=== PATIENT | female | born 1985 | race Caucasian/White ===

== ENCOUNTER 2024-08-02 09:19 | Emergency (ER) | payer MEDICAID ==
[~2024-08-02] VITALS: Ht 167.6 cm; Wt 63.6 kg
[2024-08-02 09:23] VITALS: O2SAT 99
[2024-08-02 09:45] VITALS: BP 109/60; PULSE 92; RESP 14; TEMP 36.8; O2SAT 100
[2024-08-02 10:44] LABS: CLARITY URINE CLOUDY (CLEAR); COLOR URINE ORANGE (YELLOW); GLUCOSE URINE NEGATIVE (NEGATIVE); KETONES URINE 1+ (NEGATIVE); LEUKOCYTE ESTERASE URINE 1+ (NEGATIVE); NITRITE URINE NEGATIVE (NEGATIVE); OCCULT BLOOD URINE 3+ (NEGATIVE); PH URINE 5.5 (4.5-8.0); PROTEIN URINE 1+ (NEGATIVE); SPECIFIC GRAVITY URINE 1.028 (1.005-1.030)
[2024-08-02 10:52] LABS: BASOPHILS % 0.4 % (0.0-2.0); DIFFERENTIAL COMMENT 0; EOSINOPHILS % 0.5 % (0.0-5.0); HEMATOCRIT. 30.4 % (36.0-48.0); HEMOGLOBIN. 9.3 g/dL (12.0-16.0); LYMPHOCYTES % 14.6 % (20.0-50.0); MEAN CORPUSCULAR HEMOGLOBIN 22.5 pg (28.0-32.0); MEAN CORPUSCULAR HGB CONC 30.6 g/dL (31.0-37.0); MEAN CORPUSCULAR VOLUME 73.4 fL (81.0-99.0); MEAN PLATELET VOLUME 7.8 fl (7.4-10.4); MONOCYTES % 4.6 % (2.0-8.0); NEUTROPHILS % 79.9 % (40.0-76.0); PLATELET 435 x1000/uL (130-400); RED BLOOD CELL COUNT 4.15 mill/uL (4.2-5.4); RED CELL DISTRIBUTION WIDTH 16.6 % (11.6-14.6); WHITE BLOOD COUNT 5.3 x1000/uL (4.5-11.0)
[2024-08-02 11:00] LABS: CHLORIDE 108 mEq/L (98-107); POTASSIUM 3.5 mEq/L (3.5-5.1); SODIUM 140 mEq/L (136-145)
[2024-08-02 11:02] LABS: CALCIUM 9.2 mg/dL (8.7-10.4); CARBON DIOXIDE 25 mEq/L (21-32)
[2024-08-02 11:03] LABS: HCG SCREEN NEGATIVE
[2024-08-02 11:07] LABS: CREATININE 0.6 mg/dL (0.6-1.0); GLUCOSE 94 mg/dL (70-105); UREA NITROGEN BLOOD 9 mg/dL (9-23)
[2024-08-02 11:09] LABS: ALANINE AMINOTRANSFERASE 27 IU/L (10-49); ALBUMIN 4.4 g/dL (3.2-4.8); ASPARTATE AMINOTRANSFERASE 26 IU/L (<34); BILIRUBIN DIRECT 0.1 mg/dL (<=3.0)
[2024-08-02 11:10] LABS: BILIRUBIN TOTAL 0.6 mg/dL (0.1-1.0); PROTEIN TOTAL 7.5 g/dL (6.0-8.3)
[2024-08-02 11:18] LABS: SQUAMOUS EPITHELIAL CELL URINE 1+ /lpf (RARE/1+)
[2024-08-02 11:19] LABS: MUCUS URINE 1+ /lpf (< = 2+); RBC URINE TNTC /hpf (0-2)
[2024-08-02 11:20] LABS: WBC URINE 0-2 /hpf (0-2)
[2024-08-02 11:21] LABS: BACTERIA URINE 2+
[2024-08-02] MEDS ORDERED: IBUP-2029 MT (11:56)
[2024-08-02] MEDS ORDERED: CEPH500T MT (11:56)
== END 2024-08-02 12:00 | disposition home or self-care (01) ==
LOC: ER 09:19
DX: R10.32 Left lower quadrant pain (principal); N30.00 Acute cystitis without hematuria; Z90.49 Acquired absence of other specified parts of digestive tract
CPT/HCPCS: 36415; 74176; 80048; 80076; 81003; 81025; 84703; 85025; 86850; 86900; 99284